=== PATIENT | male | born 1960 | race African-American/Black ===

== ENCOUNTER → 2020-02-04 07:17 | Outpatient (CLI) | payer BC, OTHER, SELFPAY ==
--- NOTE | ~2020-02-04 | US_ITS ---
US abdomen complete EXAMINATION: US Abdomen Complete INDICATION: Abdomen pain. Gastroesophageal reflux. PROCEDURE: Realtime High Resolution abdomen ultrasound. COMPARISON: No prior studies for comparison FINDINGS: Gallbladder within normal limits. No gallstones, pericholecystic fluid, gallbladder wall t hickening or biliary dilatation. Common bile duct measures 4 mm. Liver echotexture within normal limits without focal mass. Pancreas within normal limits. Pancreati c tail is obscured by bowel gas. Spleen is unremarkeable. Renal echotexture is within normal limits bilaterally without hydronephrosis, contour deforming mass or renal stone. Right kidney measures 10.6 cm. Left kidney measures 10 cm. Visualized aspects of the aorta and IVC are within normal limits. Portal vein is patent. No sonograph ic Correia's sign indicated by the technologist. IMPRESSION: 1: Normal abdominal ultrasound. Reviewed, dictated and finalized at location B.
== END ==
PROVIDERS: Visit Provider Family Medicine
DX: K21.9 Gastro-esophageal reflux disease without esophagitis (principal)
CPT/HCPCS: 76700